=== PATIENT | female | born 1945 ===

== ENCOUNTER → 2025-03-16 13:19 | Outpatient (REF) | payer MEDICARE, OTHER, SELFPAY ==
[2025-03-16 14:12] LABS: % Basophils 0.7 % (0-2); % Eosinophils 2.1 % (0-6); % Immature Granulocytes 0.2 % (0-0.5); % Lymphocytes 18.4 % (20.5-51.1); % Monocytes 6.3 % (1.7-9.3); % Neutrophils 72.3 % (42.2-75.2); Absolute Basophils 0.1 10^3/uL (0-0.2); Absolute Eosinophils 0.2 10^3/uL (0-0.7); Absolute Lymphocytes 1.5 10^3/uL (1.2-3.4); Absolute Monocytes 0.5 10^3/uL (0.1-0.6); Absolute Neutrophils 5.9 10^3/uL (1.4-6.5); Hematocrit 43.5 % (37.0-47.0); Hemoglobin 14.4 g/dL (12.0-16.0); Mean Corp Hgb Conc. 33.1 g/dL (33.0-37.0); Mean Corpuscular Volume 87.7 fL (81.0-99.0); Mean Platelet Volume 10.3 fL (7.4-10.4); Nucleated Red Blood Cells % 0 %; Platelet Count 203 10^3/uL (130-400); Red Blood Cell Count 4.96 10^6/uL (4.20-5.40); White Blood Cell Count 8.2 10^3/uL (4.8-10.8)
[2025-03-16 15:29] LABS: Blood Urea Nitrogen 16 mg/dl (7-17); Calcium 9.4 mg/dl (8.4-10.2); Carbon Dioxide 27 mmol/L (22-30); Chloride 107 mmol/L (98-107); Glucose 153 mg/dl (70-99); Potassium 4.1 mmol/L (3.5-5.1); Sodium 140 mmol/L (135-145); eGFR > 60.00
== END ==
LOC: REG 13:19
PROVIDERS: ATTENDING PHYSICIAN Student in an Organized Health Care Education/Training Program; FAMILY PHYSICIAN Family Medicine
DX: Z01.818 Encounter for other preprocedural examination (principal)
CPT/HCPCS: 36415; 80048; 85025

== ENCOUNTER → 2025-03-18 06:22 | Day surgery (SDC) | payer MEDICARE, OTHER, SELFPAY ==
[2025-03-18 14:51] VITALS: BMI 24.0
[2025-03-18 14:58] VITALS: BP 130/60; BMI 24.0
[2025-03-18 15:17] LABS: Glucose - Point of Care 111 mg/dl (70-99)
[2025-03-18 19:05] VITALS: BP 124/80; BP_SYST 18
[2025-03-18 19:20] VITALS: BP 132/77; BP_SYST 20
[2025-03-18 19:35] VITALS: BP 127/71; BP_SYST 20
--- NOTE | 2025-03-18 19:39 | W.IMMPOSTOP ---
Surgical Immed Post Op Note
-
Primary Surgeon: Noel Madden MD
Assisting Surgeon:
Pre-op Diagnosis: Right distal radius fracture
Post-op Diagnosis: Right distal radius fracture, DRUJ instability
Procedure Performed: ORIF right distal radius, percutaneous fixation DRUJ injury
Anesthesia Type: sedation, regional
Specimen / Cultures: none
Estimated Blood Loss: 10mL
Complications: none apparent
Operative Findings: DRUJ instability
Implants: Sammie Volar distal radius 4 hole locking narrow plate; 1.25mm K-wire
Tourniquet time: 112 minutes @ 250mm Hg
Operative dictation # [id number]
[2025-03-18 19:50] VITALS: BP 138/74
[2025-03-18 20:15] VITALS: BP 142/78
== END ==
LOC: SDS 06:22
PROVIDERS: ATTENDING PHYSICIAN Student in an Organized Health Care Education/Training Program
DX: S52.501A Unspecified fracture of the lower end of right radius, initial encounter for closed fracture (principal); S69.81XA Other specified injuries of right wrist, hand and finger(s), initial encounter; W01.0XXA Fall on same level from slipping, tripping and stumbling without subsequent striking against object, initial encounter; M25.331 Other instability, right wrist; M25.531 Pain in right wrist
CPT/HCPCS: 25607; 73110; 82962; C1713